=== PATIENT | male | born 1995 | race Two or more races ===

== ENCOUNTER 2021-08-06 16:16 | Emergency (ER) | payer BC ==
[~2021-08-06] VITALS: Ht 190.5 cm; Wt 93.0 kg
[2021-08-06 16:21] VITALS: BP 127/70
[2021-08-06] MEDS ORDERED: OFLO10SO16 LEFT EAR (16:39)
[2021-08-06] MEDS ORDERED: NAPR-54 PO (16:39)
[2021-08-06 16:59] VITALS: BP 127/70
[2021-08-06] MEDS ORDERED: ACET-9500 PO (17:01)
== END 2021-08-06 16:59 | disposition home or self-care (01) ==
LOC: MED 16:16
DX: H60.92 Unspecified otitis externa, left ear (principal)
CPT/HCPCS: 99283